=== PATIENT | male | born 2005 | race Caucasian/White ===

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

== ENCOUNTER 2024-09-18 12:10 | Emergency (ER) | payer OTHER ==
[~2024-09-18] VITALS: Ht 162.6 cm; Wt 47.7 kg
[~2024-09-18 12:10] MED LIST: IBUP-1506 PO
[2024-09-18 12:15] VITALS: TEMP 98.2
[2024-09-18] MEDS ORDERED: IBUP-1492 PO (13:28)
[2024-09-18] MEDS: IBUPROFEN 600 MG TABLET PO ONE (14:10)
[2024-09-18 14:31] VITALS: BP 100/64; PULSE 64; RESP 16; O2SAT 100
== END 2024-09-18 16:58 | disposition home or self-care (01) ==
LOC: EMS 12:10
DX: S63.501A Unspecified sprain of right wrist, initial encounter (principal); W01.0XXA Fall on same level from slipping, tripping and stumbling without subsequent striking against object, initial encounter; Y93.89 Activity, other specified; Y92.89 Other specified places as the place of occurrence of the external cause; Y99.8 Other external cause status
CPT/HCPCS: 99283